=== PATIENT | female | born 2000 | race Caucasian/White ===

== ENCOUNTER 2022-10-10 18:13 | Emergency (ER) | payer MEDICAID | END 2022-10-10 19:43 | disposition home or self-care (01) | LOC: JP.ED 18:13 | DX: L03.116 Cellulitis of left lower limb (principal); B35.4 Tinea corporis; F17.210 Nicotine dependence, cigarettes, uncomplicated; Z88.0 Allergy status to penicillin | CPT/HCPCS: 87220; 99283 ==

== ENCOUNTER 2023-06-15 18:12 | Emergency (ER) | payer MEDICAID ==
[2023-06-15 19:22] LABS: BASOPHILS ABSOLUTE AUTO 0.06 K/uL (0.00-0.10); BASOPHILS PERCENT AUTO 0.5 % (0.1-1.3); EOSINOPHILS ABSOLUTE AUTO 0.37 K/uL (0.00-0.40); EOSINOPHILS PERCENT AUTO 3.1 % (0.0-5.4); HEMATOCRIT 47.8 % (34.3-46.0); IMMATURE GRAN ABSOLUTE AUTO 0.08 K/uL (0.00-0.23); IMMATURE GRAN PERCENT AUTO 0.7 % (0.0-0.7); LYMPHOCYTES ABSOLUTE AUTO 2.15 K/uL (0.8-3.3); LYMPHOCYTES PERCENT AUTO 17.8 % (11.4-47.7); MEAN CORPUSCULAR HEMOGLOBIN 30.1 pg (31.6-35.5); MEAN CORPUSCULAR HGB CONC 33.5 g/dL (31.6-35.5); MEAN CORPUSCULAR VOLUME 89.8 fL (81.4-99.0); MONOCYTES ABSOLUTE AUTO 0.75 K/uL (0.20-0.90); MONOCYTES PERCENT AUTO 6.2 % (3.3-12.6); NEUTROPHILS ABSOLUTE AUTO 8.68 K/uL (1.0-7.6); NEUTROPHILS PERCENT AUTO 71.7 % (40.0-78.1); PLATELET COUNT,PLT 314 K/uL (130-375); RED BLOOD CELL COUNT 5.32 M/uL (3.77-5.24); WHITE BLOOD CELL COUNT,WBC 12.1 K/uL (3.2-11.0)
[2023-06-15 19:42] LABS: C-REACTIVE PROTEIN 0.14 mg/dL (0.0-0.3); CALCIUM 9.6 mg/dL (8.5-10.1); CREATININE 0.7 mg/dL (0.6-1.0); EST CRCL DRUG DOSING (CG) 95.13 mL/min; POTASSIUM,K 3.7 mmol/L (3.6-5.2)
[2023-06-15 19:43] LABS: ANION GAP 14.7 mmol/L (5.0-14.0)
[2023-06-15 19:49] LABS: APPEARANCE,URINE TURBID (CLEAR); BILIRUBIN,URINE NEGATIVE (NEGATIVE); COLOR,URINE YELLOW (YELLOW); GLUCOSE,URINE NEGATIVE (NEGATIVE); KETONES,URINE TRACE mg/dL (NEGATIVE); LEUKOCYTE ESTERASE,URINE NEGATIVE (NEGATIVE); NITRITE,URINE NEGATIVE (NEGATIVE); OCCULT BLOOD,URINE NEGATIVE (NEGATIVE); PROTEIN,URINE NEGATIVE (NEGATIVE); UROBILINOGEN,URINE 0.2 EU/dL (0.2-1.0)
[2023-06-15 19:53] LABS: AMORPHOUS SEDIMENT,URINE PACKED; BACTERIA,URINE MODERATE; EPITHELIAL CELLS,URINE MODERATE; MUCUS,URINE NOT SEEN; RBC,URINE 0-5 (0-5); WBC,URINE 0-5 (0-5)
[2023-06-15] MEDS ORDERED: Sodium Chloride 0.9% 1,000 ML IV ONE (19:58)
[2023-06-15] MEDS ORDERED: Ketorolac 15 MG/ML SDV IVPUSH ONE (19:59)
[2023-06-15] MEDS ORDERED: Ondansetron 4 MG Tab.DIS PO ONE (20:40)
[2023-06-15] MEDS ORDERED: Iopamidol 612 MG/ML 100 ML Bottle IV ONE (20:59)
[2023-06-15] MEDS ORDERED: Sodium Chloride 0.9% 10 ML Syringe FLUSH ONE (20:59)
[2023-06-15] MEDS ORDERED: Sodium Chloride 0.9% 50 ML IV ONE (20:59)
== END 2023-06-15 22:48 | disposition home or self-care (01) ==
LOC: JP.ED 18:12
DX: J02.9 Acute pharyngitis, unspecified (principal); Z20.822 Contact with and (suspected) exposure to COVID-19; Z88.0 Allergy status to penicillin; Z79.899 Other long term (current) drug therapy
CPT/HCPCS: 36415; 71046; 74177; 80048; 81001; 83605; 85025; 86140; 87635; 87651; 96361; 96374; 99284; J1885; J3490; J7030; Q0162; Q9967; U0002

== ENCOUNTER 2023-06-16 20:07 | Emergency (ER) | payer MEDICAID | END 2023-06-16 21:06 | disposition left against medical advice (07) | LOC: JP.ED 20:07 | DX: Z53.21 Procedure and treatment not carried out due to patient leaving prior to being seen by health care provider (principal) ==